=== PATIENT | male | born 1940 | race Caucasian/White ===

== ENCOUNTER → 2021-09-26 10:58 | Outpatient (CLI) | payer MEDICARE, SELFPAY ==
--- NOTE | 2021-09-26 | CA_ITS ---
APPROVED REPORT Exam: Pharmacologic Technologist: Noemi Murphy, Ht: 5 ft 6 in Wt: 173 lbs BSA: 1.88 m2 HR: 58 bpm BP: 179/80 mmHg Rhythm: sinus julio, T wave inversion inferiorly Medical History Medical History: HTN, Hyperlipidemia, Diabetes Medications: Lisinopril,,,,, Aspirin,,,,, Metformin,,,,, Fish Oil,,,,, Carvedilol,,,,, Lipitor,,,,, CloPIdogrel,,,,, Famotidine,,,,, Meclizine,,,,, DOxazosin,,,,, ActOS,,,,, Magnesium OXIDE,,,,, Cardiac Risk Factors: HTN, Hyperlipidemia, Diabetes (non-insulin) Stress Test Details Test: LEXISCAN HR Resting HR: 56 bpm Max Heart Rate (APMHR): 139.824935 bpm Max HR Achieved: 80 bpm Target HR (85% APMHR): 118.869277 bpm % of APMHR: 57.55 Recovery HR: 70 bpm BP Resting BP: 179/80 mmHg Max BP: 179/80 mmHg Recovery BP: 132.0/78.0 mmHg ECG Resting ECG: sinus julio, T wave inversion inferiorly Clinical Exercise duration: 04:00 min Highest Stage Achieved: Stress ECG Conclusion During lexiscan pt experinced SOA, lightheaded. No CP noted. No arrhythmias noted. No significant ST changes. Unremarkable lexiscan stress. Myoview images reported separately. Test Summary RECOVERY 03:00 . . 70 . 132/ 78 . . REST . . . . . . . Sitting REST 04:28 . . 56 . 179/ 80 . . Stage 1 01:00 . . 74 . . . . Stage 2 01:00 . . 74 . . . . Stage 3 01:00 . . 72 . 148/ 72 . . Stage 4 01:00 . . 70 . 151/ 75 . Stop exercise at 04:00 RECOVERY 01:00 . . 72 . 147/ 77 . . RECOVERY 02:00 . . 68 . 147/ 77 . . RECOVERY 03:00 . . 70 . 132/ 78 . . RECOVERY 04:00 . . 67 . 132/ 78 . . RECOVERY 05:00 . . 66 . 166/ 73 . . RECOVERY 05:13 . . . . Electronically signed by : Kumar Borden MD 09/27/2021 12:54:37
--- NOTE | 2021-09-26 11:13 | NM_ITS ---
APPROVED REPORT Exam: Nuclear Stress Test Indication: Fatigue, CAD, HTN, DM, High cholesterol, Tobacco use, Family history Patient Location: Outpatient Stress Tech: Noemi JORDAN Tech:Camila DanMELVIN RT(R)(N) Ht: 5 ft 5 in Wt: 180 lbs HR: 56 bpm BP: 179/80 mmHg BSA: 1.89 m2 TID: 56 BMI: 29.9 History: Fatigue, CAD, HTN, DM, High cholesterol, Tobacco use, Family history Procedure: Patient received a 0.4 mg of intravenous Lexiscan, resting heart rate 56 bpm, resting blood pressure 179/80 mmHg, with Lexiscan maximum heart rate achived was 80 bpm which is Less than 85 % of the maximum predicted heart rate and blood pressure was 179/80 mmHg. With Lexiscan, patient denied any complaint of chest pain. Electrocardiogram Resting electrocardiogram showed sinus rhythm, with Lexiscan there is less than 1.[address] segment depression noted from the baseline EKG. The EKG portion of the Lexiscan is nondiagnostic. Cardiac Stress and Resting SPECT Images: Cardiac Stress and Resting SPECT images were obtained using technetium 99m Myoview 32.0 mCi stress and 10.34 mCi at rest. Gated SPECT for analysis of segmental wall motion and calculation of the ejection fraction also done. Cardiac stress and rest SPECT images show uniform myocardial activity without segmental perfusion abnormality, computer derived ejection fraction is 58% with no regional wall motion abnormality, right ventricle is normal size and contractility. Conclusion: 1. The EKG portion of the Lexiscan is nondiagnostic. 2. No scintigraphic evidence of reversible ischemia seen, computer derived ejection fraction 58% with no regional wall motion abnormality, right ventricle is normal size and contractility. 3. Normal Lexiscan Myoview study. Electronically signed by : Kumar Borden MD 09/27/2021 12:56:28
--- NOTE | 2021-09-26 13:06 | CA_ITS ---
APPROVED REPORT EXAM: Comprehensive 2D, Doppler, and color-flow Echocardiogram Joy Loader: Lyn Peña, DEANDRA, RVS Ht: 5 ft 6 in Wt: 173lbs BSA: 1.88 BP: 179/83 mmHg Indications: CAD, SOA, HTN, DM, GERD 2D Dimensions IVSd 1.05 cm LVEF (Visual) 69.60 % PWd 1.13 cm LA Volume 64.30 mL LVDd 5.39 cm LA Volume Index 34.20 mL/m2 (M/F) 16-34 LVDs 3.26 cm Aortic Root 3.07 cm Left Atrium 3.95 cm LVOT 2.01 cm (M/F) 1.5-2.5 M-Mode Dimensions RVDd 1.86 cm (0.9-2.6) LA Diam 3.58 cm (1.9-4.0) LVDd 5.70 cm (3.5-5.7) Ao Diam 3.43 cm (2.0-3.7) LVDs 3.65 cm (3.5-5.7) IVSd 1.10 cm (0.6-1.1) PWd 0.95 cm (0.6-1.1) EF (Teich) 64.80% EPSs 0.72 cm FS 36.00% EDV (Teich) 160.00 mL TAPSE 2.14 (<1.7) ESV (Teich) 56.30 mL LV Diastology E Decel Time 273.00 (160-240 msec) E/A Ratio 1.03 MED E' 6.30 (< 7 cm/sec) MED A' 4.60 cm/s E'/MED E' Ratio 15.68 (>14) LAT E' 7.40 (<10 cm/sec) LAT A' 6.20 cm/s E/LAT E' Ratio 13.35 (>14) Aortic Valve LVOT Max 89.00 (70-110 cm/s) LVOT VTI 22.63 cm AoV Peak Khari. 136.00 (50-130 cm/s) AO Peak GR. 7.40 mmHg AO Mean GR. 3.70 (<5 mmHg) AO VTI 33.54 (18-25 cm) KATJA (VTI) 2.14 (2.5-4.5 cm2) Mitral Valve MV A Velocity 96.00 (40-130 cm/s) E/A Ratio 1.03 MV Decel. Time 273.00 (160-240 ms) MV PHT 73.00 ms Pulmonary Valve PV Peak Velocity 76.00 (50-150 cm/s) Tricuspid Valve TR P. Velocity 296.00 cm/s RAP Estimate 10.00 mmHg RVSP 45.00 mmHg Left Ventricle Left atrium is mildly enlarged, left ventricle is normal size, mild concentric left ventricular hypertrophy, estimated ejection fraction 55% with no regional wall motion abnormality, grade 2 diastolic dysfunction seen without tissue Doppler evidence of raise left atrial pressure. Right Ventricle Right atrium and right ventricle are normal size and contractility. Aortic Valve Aortic valve is thickened and calcified without aortic stenosis or aortic insufficiency. Mitral Valve Mitral valve grossly normal, there is trace mitral regurgitation. Tricuspid Valve Tricuspid valve grossly normal, there is trace tricuspid regurgitation, tricuspid regurgitation jet velocity is inadequate for calculation of the right ventricular systolic pressure. Pulmonic Valve Pulmonic valve is poorly visualized. Great Vessels Aortic root is normal size. Inferior vena cava normal size with normal inspiratory collapse. Pericardium No significant pericardial effusion noted. Conclusion 1. Normal left ventricular size, mild concentric left ventricular hypertrophy, estimated ejection fraction 55% with no regional wall motion abnormality, grade 2 diastolic dysfunction seen without tissue Doppler evidence of raise left atrial pressure. 2. Thickened and calcified aortic valve without aortic stenosis or aortic insufficiency. 3. Trace mitral and tricuspid regurgitation. 4. No significant pericardial effusion. 5. Inferior vena cava is normal size with normal spectral collapse. Electronically signed by : Kumar Borden MD 09/27/2021 14:40:24
--- NOTE | 2021-09-26 14:19 | HMH.ITSHM ---
Current Home Medications as stated by this patient Jon Rothman or guest service representative. []VITAMINS PIOGLITAZINE OMEGA 3 METFORMIN MECLIZINE MAGNESIUM LISINOPRIL IRON FAMOTIDINE DOXAZOSIN CLOPIDOGREL CARVEDILOL ASA ATORVASTATIN
== END ==
PROVIDERS: PCP Family Medicine; Visit Provider Nurse Practitioner
DX: E11.9 Type 2 diabetes mellitus without complications (principal); E78.2 Mixed hyperlipidemia; I11.9 Hypertensive heart disease without heart failure; I25.10 Atherosclerotic heart disease of native coronary artery without angina pectoris; K21.9 Gastro-esophageal reflux disease without esophagitis; R06.09 Other forms of dyspnea; Z79.84 Long term (current) use of oral hypoglycemic drugs
CPT/HCPCS: 78452; 93017; 93306; A9502; J2785

== ENCOUNTER → 2021-10-09 12:30 | Outpatient (CLI) | payer MEDICARE, SELFPAY ==
[2021-10-09 13:00] LABS: Basophils # 0.1 K/mm3 (0-0.2); Basophils % 1.7 % (0.1-2.0); Eosinophils # 0.2 K/mm3 (0.0-0.4); Eosinophils % 3.3 % (0.1-12.0); Hematocrit 35.8 % (42.0-52.0); Hemoglobin 11.9 g/dL (14.1-18.0); Lymphocytes # 2.3 K/mm3 (0.7-4.5); Lymphocytes % 38.3 % (10-50); Mean Corpuscular HGB Conc 33.1 g/dL (31.8-35.4); Mean Corpuscular Hemoglobin 31.2 pg (27.0-31.2); Mean Corpuscular Volume 94.1 fl (80-94); Mean Platelet Volume 8.4 fl (7.4-10.4); Monocytes # 0.4 K/mm3 (0.1-1.0); Monocytes % 6.2 % (1.7-9.3); Neutrophils % 50.6 % (37.0-80.0); Platelet Count 250 K/mm3 (142-424); Red Blood Count 3.81 M/mm3 (4.60-6.20); Red Cell Distribution Width 13.3 % (11.5-17.5); White Blood Count 5.9 K/mm3 (4.8-10.8)
[2021-10-09 13:10] LABS: Chloride 102 mmol/L (98-107); Sodium 136 mmol/L (136-145)
[2021-10-09 13:11] LABS: Potassium 4.7 mmoL/L (3.5-5.1)
[2021-10-09 13:13] LABS: Blood Urea Nitrogen 12 mg/dl (9-20); Estimated Glomerular Filt Rate 58 ml/min (>60); GFR (African American) 70 ML/MIN (>60)
[2021-10-09 13:14] LABS: Anion Gap 12.7 mEq/L (5-15); Calcium 9.3 mg/dl (8.4-10.2); Carbon Dioxide 26 mmol/L (22.0-30.0); Glucose 158 mg/dl (74-100)
== END ==
PROVIDERS: PCP Family Medicine; Visit Provider Internal Medicine
DX: E11.9 Type 2 diabetes mellitus without complications (principal); E78.5 Hyperlipidemia, unspecified; I11.9 Hypertensive heart disease without heart failure; I25.10 Atherosclerotic heart disease of native coronary artery without angina pectoris; K21.9 Gastro-esophageal reflux disease without esophagitis; R06.00 Dyspnea, unspecified; Z01.812 Encounter for preprocedural laboratory examination; Z20.822 Contact with and (suspected) exposure to COVID-19; Z79.84 Long term (current) use of oral hypoglycemic drugs
CPT/HCPCS: 36415; 80048; 85025; C9803; U0003; U0005

== ENCOUNTER 2021-10-11 09:10 | Day surgery (SDC) | payer MEDICARE, SELFPAY ==
[2021-10-11] VITALS (13 sets, daily range): BP systolic 104–182; BP diastolic 69–99; PULSE 50–62; RESP 18; O2SAT 94–98; BMI 28.0
--- NOTE | 2021-10-11 | IR_ITS ---
APPROVED REPORT Patient Location: Outpatient Mdm Sr: MELVIN Engel RT (R) PROCEDURES Left heart catheterization Left ventriculogram Selective coronary angiogram FFR to the LAD Drug-eluting stent deployment to the proximal ID INDICATION Known coronary artery disease, Interval EKG changes, Accelerated angina pectoris, Ischemic response to adenosine with an FFR index of 0.74, Angiographically ambiguous proximal LAD stenosis Informed consent was obtained prior to the procedure. COMPLICATIONS None Estimated Blood Loss: Less than 10 mls TECHNIQUE One percent lidocaine used to anesthetize the right anterior aspect of the wrist. The right radial artery was accessed via the Seldinger technique. A 6 Kazakh sheath was placed in the right radial artery. 2.5 mg of verapamil, 800 mcg of nitroglycerin, 1mg Lidocaine and 5000 U Heparin were given through the arterial sheath. The papa catheter was also used to perform left heart catheterization, left ventriculogram and selective coronary angiogram. At the end the diagnostic angiogram therapeutic heparin was administered giving a therapeutic ACT and a Choice PT extra-support wire was placed distally in the LAD. A nevus FFR catheter was equalized in the left main artery and then placed distally. The FFR index dropped to 0.74 with infusion of adenosine per protocol. Following this a 3 mm x 12 mm balloon was used to predilate the stenosis after stent cannot be primary delivered. Following predilatation a stent still could not be delivered therefore a guide liner was placed into the proximal LAD and a 3 mm x 26 mm resolute Shiraz stent was deployed at 24 shiloh reducing the hemodynamically severe stenosis to 0%. DANIEL-3 flow was present before and after the procedure. At the end the procedure the apparatus was removed the sheath was removed good hemostasis was achieved using TR banding patient was transferred to the postop putting her stable condition ANGIOGRAPHIC RESULTS The left main artery Normal The left anterior descending artery Has a proximal concentric 50 to 70% stenosis with remaining vessel widely patent The circumflex artery Nondominant yet still large with proximal mid vessel 20% stenoses The right coronary artery Dominant with an ostial 20% stenosis followed by a stent in the proximal to mid segment which is widely patent free of in-stent restenosis with excellent proximal distal transitioning. Distally there are mild 10 to 20% luminal irregularities The ANGULO ventriculogram reveals Normal 65% The left ventricular end-diastolic pressure 10 mmHg IMPRESSION Hemodynamically severe proximal LAD disease as described above with successful stenting reducing the stenosis to 0% with 1 drug-eluting stent Normal ejection fraction Normal left ventricular end-diastolic pressure PLAN 1. Dual antiplatelet therapy 2. Risk factor modification 3. Cardiac rehabilitation 4. Avoidance of tobacco products 5. LDL less than 55 to be achieved with high intensity statin Electronically signed by : Ray Barlow MD 10/11/2021 11:28:09
[2021-10-11 11:44] LABS: CATHL Activated Clotting Time > 400 SEC (74-125)
--- NOTE | 2021-10-11 14:35 | HMH.PHACLD ---
Jon Rothman has received discharge medication counseling on the following medications: ASPIRIN PLAVIX CARVEDILOL ATORVASTATIN LISINOPRIL PATIENT IS ALREADY TAKING ALL NECESSARY MEDICATIONS POST-STENT. NOTHING NEW AT THIS TIME. PATIENT VERBALIZED UNDERSTANDING AND HAD NO QUESTIONS. -ESTEFANI KIM, PHARMD
== END 2021-10-11 16:11 | disposition home or self-care (01) ==
LOC: CATHLAB 09:13
PROVIDERS: PCP Family Medicine; Visit Provider Internal Medicine
DX: R06.02 Shortness of breath (principal); E11.9 Type 2 diabetes mellitus without complications; Z79.84 Long term (current) use of oral hypoglycemic drugs; I25.118 Atherosclerotic heart disease of native coronary artery with other forms of angina pectoris; I11.9 Hypertensive heart disease without heart failure; K21.9 Gastro-esophageal reflux disease without esophagitis; E78.5 Hyperlipidemia, unspecified
CPT/HCPCS: 85347; 92928; 93458; 93571; 99152; 99153; C1725; C1769; C1876; C9600; J1644; Q9967

== ENCOUNTER → 2021-12-03 11:39 | Outpatient (CLI) | payer MEDICARE, SELFPAY ==
[2021-12-03 13:07] LABS: Chloride 93 mmol/L (98-107)
[2021-12-03 13:08] LABS: Potassium 4.5 mmoL/L (3.5-5.1); Sodium 128 mmol/L (136-145)
[2021-12-03 13:11] LABS: Anion Gap 13.5 mEq/L (5-15); Blood Urea Nitrogen 19 mg/dl (9-20); Carbon Dioxide 26 mmol/L (22.0-30.0); Estimated Glomerular Filt Rate 53 ml/min (>60); GFR (African American) 64 ML/MIN (>60); Glucose 195 mg/dl (74-100)
== END ==
PROVIDERS: Visit Provider Physician Assistant
DX: E11.9 Type 2 diabetes mellitus without complications (principal); E78.2 Mixed hyperlipidemia; I11.9 Hypertensive heart disease without heart failure; I25.10 Atherosclerotic heart disease of native coronary artery without angina pectoris; K21.9 Gastro-esophageal reflux disease without esophagitis; R06.09 Other forms of dyspnea
CPT/HCPCS: 36415; 80048

== ENCOUNTER → 2021-12-25 11:37 | Outpatient (CLI) | payer MEDICARE, SELFPAY ==
[2021-12-25 12:51] LABS: Anion Gap 10.8 mEq/L (5-15); Blood Urea Nitrogen 14 mg/dl (9-20); Calcium 9.5 mg/dl (8.4-10.2); Carbon Dioxide 28 mmol/L (22.0-30.0); Chloride 97 mmol/L (98-107); Estimated Glomerular Filt Rate 58 ml/min (>60); GFR (African American) 70 ML/MIN (>60); Glucose 199 mg/dl (74-100); Potassium 4.8 mmoL/L (3.5-5.1); Sodium 131 mmol/L (136-145)
== END ==
PROVIDERS: PCP Family Medicine; Visit Provider Physician Assistant
DX: E11.9 Type 2 diabetes mellitus without complications (principal); E78.5 Hyperlipidemia, unspecified; I11.9 Hypertensive heart disease without heart failure; I25.10 Atherosclerotic heart disease of native coronary artery without angina pectoris; K21.9 Gastro-esophageal reflux disease without esophagitis; R00.1 Bradycardia, unspecified; R06.00 Dyspnea, unspecified; Z79.84 Long term (current) use of oral hypoglycemic drugs
CPT/HCPCS: 36415; 80048

== ENCOUNTER → 2022-06-04 13:48 | Outpatient (CLI) | payer MEDICARE, SELFPAY ==
[2022-06-04 14:15] LABS: Basophils # 0.1 K/mm3 (0-0.2); Basophils % 0.8 % (0.1-2.0); Eosinophils # 0.1 K/mm3 (0.0-0.4); Eosinophils % 2.3 % (0.1-12.0); Hematocrit 35.3 % (42.0-52.0); Hemoglobin 11.7 g/dL (14.1-18.0); Lymphocytes % 34.1 % (10-50); Mean Corpuscular HGB Conc 33.1 g/dL (31.8-35.4); Mean Corpuscular Hemoglobin 30.3 pg (27.0-31.2); Mean Corpuscular Volume 91.6 fl (80-94); Mean Platelet Volume 8.2 fl (7.4-10.4); Monocytes # 0.4 K/mm3 (0.1-1.0); Monocytes % 6.4 % (1.7-9.3); Neutrophils # 3.4 K/mm3 (1.8-7.8); Neutrophils % 56.5 % (37.0-80.0); Platelet Count 272 K/mm3 (142-424); Red Blood Count 3.85 M/mm3 (4.60-6.20); Red Cell Distribution Width 13.6 % (11.5-17.5)
[2022-06-04 15:02] LABS: Alanine Aminotransferase 23 U/L (12-78); Albumin Level 4.2 g/dl (3.5-5.0); Alkaline Phosphatase 68 U/L (38-126); Anion Gap 12.4 mEq/L (5-15); Aspartate Amino Transferase 28 U/L (17-59); Bilirubin,Direct 0.1 mg/dl (0.0-0.4); Bilirubin,Indirect 0.5 mg/dL (0.0-0.9); Bilirubin,Total 0.6 mg/dl (0.2-1.3); Bilirubin,Unconjugated 0.6 mg/dL (0.0-1.1); Blood Urea Nitrogen 15 mg/dl (9-20); Carbon Dioxide 26 mmol/L (22.0-30.0); Chloride 96 mmol/L (98-107); Chol/HDL Ratio 3.5 (1-3.5); Cholesterol 119 mg/dl (140-200); Estimated Glomerular Filt Rate 49 ml/min (>60); GFR (African American) 59 ML/MIN (>60); Glucose 118 mg/dl (74-100); HDL Cholesterol 34 mg/dl (40-60); Potassium 4.4 mmoL/L (3.5-5.1); Sodium 130 mmol/L (136-145); Total Protein,Serum 6.4 g/dl (6.3-8.2); Triglycerides 113 mg/dl (30-150); VLDL Cholesterol 23 mg/dL (0-40)
[2022-06-04 15:13] LABS: Direct LDL Cholesterol 56.75 mg/dL (100-129)
== END ==
PROVIDERS: PCP Family Medicine; Visit Provider Nurse Practitioner
DX: E78.2 Mixed hyperlipidemia (principal); I11.9 Hypertensive heart disease without heart failure; I25.10 Atherosclerotic heart disease of native coronary artery without angina pectoris; E11.9 Type 2 diabetes mellitus without complications; I63.9 Cerebral infarction, unspecified; R06.00 Dyspnea, unspecified; Z79.84 Long term (current) use of oral hypoglycemic drugs
CPT/HCPCS: 36415; 80048; 80061; 80076; 84439; 84443; 85025

== ENCOUNTER 2023-12-03 14:07 | Outpatient (CLI) | payer MEDICARE, SELFPAY ==
[2023-12-03 14:56] LABS: Basophils # 0.1 K/mm3 (0-0.2); Basophils % 0.9 % (0.1-2.0); Eosinophils # 0.1 K/mm3 (0.0-0.4); Eosinophils % 2.5 % (0.1-12.0); Hematocrit 34.7 % (42.0-52.0); Hemoglobin 11.5 g/dL (14.1-18.0); Lymphocytes # 1.8 K/mm3 (0.7-4.5); Lymphocytes % 31.1 % (10-50); Mean Corpuscular Hemoglobin 30.4 pg (27.0-31.2); Mean Corpuscular Volume 91.9 fl (80-94); Mean Platelet Volume 7.7 fl (7.4-10.4); Monocytes # 0.5 K/mm3 (0.1-1.0); Monocytes % 8.6 % (1.7-9.3); Neutrophils # 3.2 K/mm3 (1.8-7.8); Platelet Count 254 K/mm3 (142-424); Red Blood Count 3.77 M/mm3 (4.60-6.20); Red Cell Distribution Width 13.7 % (11.5-17.5); White Blood Count 5.6 K/mm3 (4.8-10.8)
[2023-12-03 15:10] LABS: Chloride 98 mmol/L (98-107); Sodium 130 mmol/L (136-145)
[2023-12-03 15:12] LABS: Blood Urea Nitrogen 17 mg/dl (9-20); Estimated Glomerular Filt Rate 53 ml/min (>60); GFR (African American) 64 ML/MIN (>60)
[2023-12-03 15:13] LABS: Alanine Aminotransferase 21 U/L (12-78); Albumin Level 4.2 g/dl (3.5-5.0); Alkaline Phosphatase 64 U/L (38-126); Aspartate Amino Transferase 34 U/L (17-59); Bilirubin,Indirect 0.9 mg/dL (0.0-0.9); Bilirubin,Total 0.9 mg/dl (0.2-1.3); Bilirubin,Unconjugated 0.9 mg/dL (0.0-1.1); Calcium 9.5 mg/dl (8.4-10.2); Carbon Dioxide 24 mmol/L (22.0-30.0); Cholesterol 127 mg/dl (140-200); Glucose 117 mg/dl (74-100); Total Protein,Serum 6.7 g/dl (6.3-8.2); Triglycerides 94 mg/dl (30-150); VLDL Cholesterol 19 mg/dL (0-40)
[2023-12-03 15:14] LABS: Chol/HDL Ratio 3.2 (1-3.5); HDL Cholesterol 40 mg/dl (40-60); Magnesium 1.3 mg/dl (1.6-2.3)
[2023-12-03 15:24] LABS: Direct LDL Cholesterol 58.84 mg/dL (100-129)
[2023-12-03 15:30] LABS: Free T4 (Free Thyroxine) 1.26 ng/dl (0.78-2.19)
[2023-12-03 15:43] LABS: Thyroid Stimulating Hormone 2.23 uIU/mL (0.465-4.68)
== END 2023-12-03 23:59 | disposition home or self-care (01) ==
LOC: LAB 14:08
PROVIDERS: Visit Provider Nurse Practitioner Family
DX: R06.09 Other forms of dyspnea (principal); E11.9 Type 2 diabetes mellitus without complications; I11.9 Hypertensive heart disease without heart failure; E78.2 Mixed hyperlipidemia; I25.10 Atherosclerotic heart disease of native coronary artery without angina pectoris; I10 Essential (primary) hypertension; R06.00 Dyspnea, unspecified; K21.9 Gastro-esophageal reflux disease without esophagitis
CPT/HCPCS: 36415; 80048; 80061; 80076; 83735; 84439; 84443; 85025

== ENCOUNTER 2024-08-02 12:35 | Outpatient (CLI) | payer MEDICARE, SELFPAY ==
[2024-08-02 12:51] LABS: Basophils # 0.1 K/mm3 (0-0.2); Basophils % 0.9 % (0.1-2.0); Eosinophils # 0.2 K/mm3 (0.0-0.4); Eosinophils % 2.8 % (0.1-12.0); Hematocrit 32.3 % (42.0-52.0); Hemoglobin 11.1 g/dL (14.1-18.0); Lymphocytes # 1.4 K/mm3 (0.7-4.5); Lymphocytes % 24.4 % (10-50); Mean Corpuscular HGB Conc 34.4 g/dL (31.8-35.4); Mean Corpuscular Hemoglobin 30.4 pg (27.0-31.2); Mean Corpuscular Volume 88.5 fl (80-94); Mean Platelet Volume 9.2 fl (7.4-10.4); Monocytes # 0.6 K/mm3 (0.1-1.0); Monocytes % 10.9 % (1.7-9.3); Neutrophils # 3.5 K/mm3 (1.8-7.8); Neutrophils % 60.8 % (37.0-80.0); Platelet Count 273 K/mm3 (142-424); Red Blood Count 3.65 M/mm3 (4.60-6.20); Red Cell Distribution Width 11.9 % (11.5-17.5); White Blood Count 5.7 K/mm3 (4.8-10.8)
[2024-08-02 13:20] LABS: Albumin Level 4.4 g/dl (3.5-5.0); Chloride 88 mmol/L (98-107); Potassium 4.5 mmoL/L (3.5-5.1); Sodium 124 mmol/L (136-145)
[2024-08-02 13:23] LABS: Alanine Aminotransferase 19 U/L (12-78); Alkaline Phosphatase 74 U/L (38-126); Anion Gap 13.5 mEq/L (5-15); Aspartate Amino Transferase 23 U/L (17-59); Bilirubin,Indirect 0.6 mg/dL (0.0-0.9); Bilirubin,Total 0.6 mg/dl (0.2-1.3); Bilirubin,Unconjugated 0.9 mg/dL (0.0-1.1); Blood Urea Nitrogen 14 mg/dl (9-20); Calcium 9.7 mg/dl (8.4-10.2); Carbon Dioxide 27 mmol/L (22.0-30.0); Cholesterol 109 mg/dl (140-200); Estimated Glomerular Filt Rate 53 ml/min (>60); GFR (African American) 64 ML/MIN (>60); Glucose 134 mg/dl (74-100); Total Protein,Serum 6.4 g/dl (6.3-8.2); Triglycerides 118 mg/dl (30-150); VLDL Cholesterol 24 mg/dL (0-40)
[2024-08-02 13:24] LABS: HDL Cholesterol 36 mg/dl (40-60); Magnesium 1.1 mg/dl (1.6-2.3)
[2024-08-02 13:36] LABS: Direct LDL Cholesterol 44.19 mg/dL (100-129)
[2024-08-02 13:40] LABS: Free T4 (Free Thyroxine) 1.32 ng/dl (0.78-2.19)
[2024-08-02 13:55] LABS: Thyroid Stimulating Hormone 2.14 uIU/mL (0.465-4.68)
== END 2024-08-02 23:59 | disposition home or self-care (01) ==
LOC: LAB 12:36
PROVIDERS: PCP Family Medicine; Visit Provider Nurse Practitioner Family
DX: I25.10 Atherosclerotic heart disease of native coronary artery without angina pectoris (principal); E11.9 Type 2 diabetes mellitus without complications; E78.2 Mixed hyperlipidemia; I10 Essential (primary) hypertension; K21.9 Gastro-esophageal reflux disease without esophagitis
CPT/HCPCS: 36415; 80048; 80061; 80076; 83735; 84439; 84443; 85025

== ENCOUNTER 2024-08-12 08:41 | Outpatient (CLI) | payer MEDICARE, SELFPAY ==
--- NOTE | 2024-08-12 09:00 | CA_ITS ---
FINAL REPORT TECHNIQUE: Ultrasound images of the kidneys were obtained. Duplex Doppler of the renal arteries, RAR and RI also obtained. Spectral analysis was performed. CLINICAL HISTORY: CAD, HTN COMPARISON: None FINDINGS: Limited images of the liver parenchyma demonstrate normal echogenicity. The right kidney measures 10.9 cm in length. There are multiple hypoechoic foci in the right kidney, compatible with small renal cysts, the largest measuring 2.4 cm in diameter. It is otherwise normal echogenicity. There is no hydronephrosis. RI is 0.68-0.80. The renal artery/aortic ratio: 2. The left kidney measures 10.7 cm in length. There are multiple hypoechoic foci in the left kidney, compatible with small renal cysts. It is otherwise normal echogenicity. There is no hydronephrosis. RI is 0.78-0.84. The renal artery/aortic ratio: 1.7. IMPRESSION: Less than 60% luminal diameter stenosis in the renal arteries bilaterally. Bilateral renal cysts. Reviewed, Interpreted and Dictated by Dionicio Duarte MD Transcribed by Dee Ramey Authenticated and . [facility]
--- NOTE | 2024-08-12 10:00 | US_ITS ---
FINAL REPORT TECHNIQUE: Ultrasound images of the kidneys were obtained. CLINICAL HISTORY: I10 - Essential (primary) hypertension COMPARISON: None FINDINGS: RENAL ULTRASOUND Limited images of the liver parenchyma demonstrate normal echogenicity. The right kidney measures 11.4 cm in length. There is an anechoic structure in the right kidney measures 2.0 cm in diameter consistent with a benign cyst. There is no hydronephrosis. The left kidney measures 9.7 cm in length. There are multiple small echogenic foci probably representing small nonobstructing stones. There is no hydronephrosis. IMPRESSION: 2 cm cyst in the right kidney. Probable nonobstructing stones in the left kidney. Reviewed, Interpreted and Dictated by Dionicio Duarte MD Transcribed by Sandee Corbett Authenticated and [facility]
[2024-08-12 10:34] LABS: Anion Gap 16.6 mEq/L (5-15); Blood Urea Nitrogen 25 mg/dl (9-20); Calcium 10.1 mg/dl (8.4-10.2); Carbon Dioxide 26 mmol/L (22.0-30.0); Chloride 91 mmol/L (98-107); Estimated Glomerular Filt Rate 45 ml/min (>60); GFR (African American) 54 ML/MIN (>60); Glucose 107 mg/dl (74-100); Potassium 4.6 mmoL/L (3.5-5.1); Sodium 129 mmol/L (136-145)
== END 2024-08-12 23:59 | disposition home or self-care (01) ==
PROVIDERS: PCP Family Medicine; Visit Provider Nurse Practitioner Family
DX: N28.1 Cyst of kidney, acquired (principal); I10 Essential (primary) hypertension; E87.1 Hypo-osmolality and hyponatremia
CPT/HCPCS: 36415; 76770; 80048; 93976

== ENCOUNTER 2024-09-13 11:07 | Outpatient (CLI) | payer MEDICARE, SELFPAY ==
--- NOTE | 2024-09-13 | CA_ITS ---
APPROVED REPORT Exam: Exercise Treadmill Technologist: Vivian Vernon Ht: 5 ft 6 in Wt: 169 lbs BSA: 1.86 m2 HR: 53 bpm BP: 176/75 mmHg Stress Test Details Test: Lexiscan HR Resting HR: 53 bpm Max Heart Rate (APMHR): 136.571852 bpm Max HR Achieved: 68 bpm Target HR (85% APMHR): 115.598863 bpm % of APMHR: 50.00 Recovery HR: 60 bpm BP Resting BP: 176.0/75.0 mmHg Max BP: 176.0/75.0 mmHg Recovery BP: 170.0/78.0 mmHg ECG Resting ECG: Sinus bradycardia Stress ECG Conclusion Symptoms: - Arrhythmias/Ectopy: PVC/PAC ST-T Changes: Less than [address] depression. Abnormality in lead III, T wave inversion. Conclusion: EKG unremarkable due to Lexiscan infusion. Electronically signed by : Rosario Browne MD 09/20/2024 12:15:33
--- NOTE | 2024-09-13 11:15 | CA_ITS ---
APPROVED REPORT EXAM: Comprehensive 2D, Doppler, and color-flow Echocardiogram Life Specialist: Lenora Dozier RT(R) Ht: 5 ft 6 in Wt: 169lbs BSA: 1.86 BP: 131/64 mmHg Indications: CAD, DD, abn EKG, PACKER, fatigue, HTN, DM, hyperlipidemia. 2D Dimensions LVEF (Gill's) 63.60 % M: 52 - 72 LV Volume 87.60 mL M: 62 - 150 LV Volume Index 47.1 mL/m2 M: 34 - 74 LA Volume 47.80 mL LA Volume Index 25.70 mL/m2 (M/F) 16-34 EF AP4 65.90 % EF AP2 59.9 % EF BP 63.6 % GL Strain -19.8 % M-Mode Dimensions RVDd 2.98 cm (0.9-2.6) LA Diam 3.87 cm (1.9-4.0) LVDd 4.35 cm (3.5-5.7) LVDs 2.82 cm (3.5-5.7) IVSd 0.89 cm (0.6-1.1) PWd 0.85 cm (0.6-1.1) EF (Teich) 64.80% FS 35.20% EDV (Teich) 85.40 mL TAPSE 2.15 (<1.7) ESV (Teich) 30.10 mL LV Diastology E Decel Time 213 (160-240 msec) E/A Ratio 1.3 Mitral Valve MV E Max Khari. 108.0 (40-130 cm/s) MV A Velocity 83.0 (40-130 cm/s) E/A Ratio 1.31 MV PHT 62.0 ms Left Ventricle The left ventricle is normal size. The left ventricular systolic function is normal. The left ventricular ejection fraction is within the normal range. There is increased LV wall thickness. There is normal LV segmental wall motion. The left ventricular diastolic function is normal. LVEF is 55%. Right Ventricle The right ventricle is normal size. The right ventricular systolic function is normal. Atria Left atrium is mildly dilated. The right atrium size is normal. There is no Doppler evidence of interatrial shunt. Aortic Valve Aortic valve is mildly thickened. Mild aortic regurgitation. There is no aortic valvular stenosis. Mitral Valve The mitral valve is normal in structure. No evidence of mitral valve stenosis. Mild mitral regurgitation. Tricuspid Valve Tricuspid valve is grossly normal in structure and function. Trace tricuspid regurgitation. There is insufficient TR jet to estimate RVSP. Pulmonic Valve The pulmonary valve is normal in structure. Trace pulmonic regurgitation. Great Vessels IVC is normal in size and collapses >50% with inspiration. Pericardium There is no pericardial effusion. Other Information Study Quality: Fair Conclusion Normal biventricular systolic function. Mild LA dilation. Mild AI, mild MR. Electronically signed by : Rosario Browne MD 09/13/2024 15:43:59
--- NOTE | 2024-09-13 13:00 | NM_ITS ---
APPROVED REPORT Exam: Nuclear Stress Test Indication: high bp..diabetes Patient Location: Outpatient Stress Tech: Vivian Vernon [place] Tech:Brigitte Bojorquez, JAMEST, RT (R)(N) Ht: 5 ft 5 in Wt: 160 lbs HR: 53 bpm BP: 176/75 mmHg BSA: 1.80 m2 TID: 1.19 BMI: 26.6 History: high bp..diabetes Procedure: Patient received 0.4 mg of intravenous Lexiscan, resting heart rate 53 bpm, resting blood pressure 176/75 mmHg, with Lexiscan maximum heart rate achieved was 62 bpm which is 85 % of the maximum predicted heart rate and blood pressure was 173/74 mmHg. With Lexiscan, patient denied any complaint of chest pain. Cardiac Stress and Resting SPECT Images: Cardiac Stress and Resting SPECT images were obtained using technetium 99m Myoview 32.9 mCi stress and 10.95 mCi at rest. Raw images demonstrate significant radiotracer uptake in the GI tract in close proximity to the inferior border of the LV wall. This may affect diagnostic interpretation of the study findings. Resting and stress imaging in supine and prone positions demonstrate no evidence of fixed or reversible perfusion defects. Gated imaging demonstrates normal global and regional LV systolic function. LVEF is calculated at 58%. Conclusion: Technically difficult study. No evidence of fixed or reversible perfusion defects. Gated imaging demonstrates normal global and regional LV systolic function. LVEF is calculated at 58%. Electronically signed by : Rosario Browne MD 09/13/2024 15:46:25
[2024-09-13] MEDS: ISOTOPE MYOVIEW (PER STUDY) 1 DOSE IV (14:17)
[2024-09-13] MEDS: SODIUM CHLORIDE 0.9% 10ML SYR (RAD ONLY) 10 ML IV ×2 (14:17)
[2024-09-13] MEDS: REGADENOSON 0.4MG/5ML SYRINGE 0.4 MG IV (14:37)
== END 2024-09-13 23:59 | disposition home or self-care (01) ==
LOC: RT 11:09
PROVIDERS: PCP Family Medicine; Visit Provider Nurse Practitioner Family
DX: I51.7 Cardiomegaly (principal); I34.0 Nonrheumatic mitral (valve) insufficiency; I35.1 Nonrheumatic aortic (valve) insufficiency; I25.10 Atherosclerotic heart disease of native coronary artery without angina pectoris; R53.83 Other fatigue; R06.02 Shortness of breath
CPT/HCPCS: 78452; 93017; 93018; 93306; A9502; J2785

== ENCOUNTER 2024-11-03 13:56 | Outpatient (CLI) | payer MEDICARE, SELFPAY ==
[2024-11-03 14:41] LABS: Basophils % 0.6 % (0.1-2.0); Eosinophils # 0.2 Kmm3 (0.0-0.4); Eosinophils % 4.4 % (0.1-12.0); Hematocrit 30.6 % (42.0-52.0); Immature Granulocytes # 0.01 10^3uL; Immature Granulocytes % 0.2 %; Lymphocytes # 1.8 K/mm3 (0.7-4.5); Mean Corpuscular HGB Conc 32.7 g/dL (31.8-35.4); Mean Corpuscular Hemoglobin 30.5 pg (27.0-31.2); Mean Corpuscular Volume 93.3 fl (80-94); Mean Platelet Volume 10.6 fl (7.4-10.4); Monocytes # 0.5 K/mm3 (0.1-1.0); Monocytes % 9.4 % (1.7-9.3); Neutrophils # 2.7 K/mm3 (1.8-7.8); Neutrophils % 51.4 % (37.0-80.0); Nucleated Red Blood Cells # 0 10^3/uL; Nucleated Red Blood Cells % 0 %; Platelet Count 244 K/mm3 (142-424); Red Blood Count 3.28 M/mm3 (4.60-6.20); Red Cell Distribution Width 13.2 % (11.5-17.5); White Blood Count 5.2 K/mm3 (4.8-10.8)
[2024-11-03 15:07] LABS: Alanine Aminotransferase 15 U/L (12-78); Albumin Level 4.1 g/dl (3.5-5.0); Alkaline Phosphatase 73 U/L (38-126); Anion Gap 7.1 mEq/L (5-15); Aspartate Amino Transferase 21 U/L (17-59); Bilirubin,Direct 0.2 mg/dl (0.0-0.4); Bilirubin,Indirect 0.7 mg/dL (0.0-0.9); Bilirubin,Total 0.9 mg/dl (0.2-1.3); Bilirubin,Unconjugated 0.7 mg/dL (0.0-1.1); Blood Urea Nitrogen 25 mg/dl (9-20); Calcium 10.9 mg/dl (8.4-10.2); Carbon Dioxide 27 mmol/L (22.0-30.0); Chloride 102 mmol/L (98-107); Chol/HDL Ratio 3.5 (1-3.5); Cholesterol 113 mg/dl (140-200); Estimated Glomerular Filt Rate 41 ml/min (>60); GFR (African American) 50 ML/MIN (>60); Glucose 91 mg/dl (74-100); HDL Cholesterol 32 mg/dl (40-60); Magnesium 1.5 mg/dl (1.6-2.3); Potassium 5.1 mmoL/L (3.5-5.1); Sodium 131 mmol/L (136-145); Total Protein,Serum 6.6 g/dl (6.3-8.2); Triglycerides 118 mg/dl (30-150); VLDL Cholesterol 24 mg/dL (0-40)
[2024-11-03 15:18] LABS: Direct LDL Cholesterol 44.04 mg/dL (100-129)
[2024-11-03 15:21] LABS: Free T4 (Free Thyroxine) 1.24 ng/dl (0.78-2.19)
[2024-11-03 15:36] LABS: Thyroid Stimulating Hormone 2.29 uIU/mL (0.465-4.68)
[2024-11-03 17:38] LABS: Hemoglobin A1C 5.8 % (4.0-6.0)
== END 2024-11-03 23:59 | disposition home or self-care (01) ==
LOC: LAB 13:57
PROVIDERS: Visit Provider Internal Medicine
DX: I25.10 Atherosclerotic heart disease of native coronary artery without angina pectoris (principal); E11.9 Type 2 diabetes mellitus without complications; E87.1 Hypo-osmolality and hyponatremia; K21.9 Gastro-esophageal reflux disease without esophagitis; I11.9 Hypertensive heart disease without heart failure; E78.5 Hyperlipidemia, unspecified; R60.0 Localized edema
CPT/HCPCS: 36415; 80048; 80061; 80076; 83036; 83735; 84439; 84443; 85025

== ENCOUNTER 2024-11-17 13:11 | Outpatient (CLI) | payer MEDICARE, SELFPAY ==
[2024-11-17 14:04] LABS: Chloride 98 mmol/L (98-107); Potassium 4.8 mmoL/L (3.5-5.1); Sodium 133 mmol/L (136-145)
[2024-11-17 14:07] LABS: Anion Gap 13.8 mEq/L (5-15); Blood Urea Nitrogen 17 mg/dl (9-20); Calcium 9.0 mg/dl (8.4-10.2); Carbon Dioxide 26 mmol/L (22.0-30.0); Creatinine,Serum 1.40 mg/dl (0.66-1.25); Estimated Glomerular Filt Rate 48 ml/min (>60); GFR (African American) 58 ML/MIN (>60); Glucose 174 mg/dl (74-100)
== END 2024-11-17 23:59 | disposition home or self-care (01) ==
LOC: LAB 13:11
PROVIDERS: PCP Family Medicine; Visit Provider Internal Medicine
DX: I25.10 Atherosclerotic heart disease of native coronary artery without angina pectoris (principal)
CPT/HCPCS: 36415; 80048

== ENCOUNTER 2025-02-16 13:27 | Outpatient (CLI) | payer MEDICARE, SELFPAY ==
[2025-02-16 13:54] LABS: Hematocrit 31.3 % (42.0-52.0); Hemoglobin 10.0 g/dL (14.1-18.0); Immature Granulocytes % 0.2 %; Mean Corpuscular HGB Conc 31.9 g/dL (31.8-35.4); Mean Corpuscular Hemoglobin 30.8 pg (27.0-31.2); Mean Corpuscular Volume 96.3 fl (80-94); Nucleated Red Blood Cells % 0 %; Platelet Count 223 K/mm3 (142-424); Red Blood Count 3.25 M/mm3 (4.60-6.20); Red Cell Distribution Width-SD 44.0 fL; White Blood Count 5.8 K/mm3 (4.8-10.8)
[2025-02-16 14:48] LABS: Anion Gap 16.1 mEq/L (5-15); Blood Urea Nitrogen 19 mg/dl (9-20); Calcium 9.5 mg/dl (8.4-10.2); Carbon Dioxide 22 mmol/L (22.0-30.0); Chloride 97 mmol/L (98-107); Creatinine,Serum 1.30 mg/dl (0.66-1.25); Estimated Glomerular Filt Rate 53 ml/min (>60); GFR (African American) 64 ML/MIN (>60); Glucose 100 mg/dl (74-100); Potassium 5.1 mmoL/L (3.5-5.1); Sodium 130 mmol/L (136-145)
== END 2025-02-16 23:59 | disposition home or self-care (01) ==
LOC: LAB 13:27
PROVIDERS: Visit Provider Internal Medicine
DX: I25.10 Atherosclerotic heart disease of native coronary artery without angina pectoris (principal); I10 Essential (primary) hypertension
CPT/HCPCS: 36415; 80048; 85025